=== PATIENT | male | born 1985 | race Caucasian/White ===

== ENCOUNTER 2018-08-11 20:03 | Emergency (ER) | payer OTHER ==
[~2018-08-11] VITALS: Ht 172.7 cm; Wt 86.2 kg
[2018-08-11] MEDS ORDERED: OMEPRAZOLE20 MG (20:17)
[2018-08-11] MEDS ORDERED: MULTIVITAMINS (20:17)
[2018-08-11] MEDS ORDERED: NORCO 5-325 TA1 EACH PO (22:17)
[2018-08-11 22:28] VITALS: BP 130/87
== END 2018-08-11 22:29 | disposition home or self-care (01) ==
LOC: M.ERS 20:03
DX: S02.40CA Maxillary fracture, right side, initial encounter for closed fracture (principal); Z91.013 Allergy to seafood; W21.07XA Struck by softball, initial encounter; Y92.89 Other specified places as the place of occurrence of the external cause; Y93.64 Activity, baseball; Y99.8 Other external cause status